=== PATIENT | male | born 1980 | race Caucasian/White ===

== ENCOUNTER 2016-04-24 00:53 | Emergency (ER) | payer OTHER ==
[~2016-04-24] VITALS: Ht 167.6 cm; Wt 72.6 kg
[2016-04-24 00:53] VITALS: BP 143/93; PULSE 123; RESP 16; TEMP 98.2; O2SAT 100
--- NOTE | 2016-04-24 00:53 | NUR ---
Placed in hallway. Gave report to Bharat BRADSHAW.
--- NOTE | 2016-04-24 01:10 | NUR ---
PT BIB [employer] FOR BLOOD ALCOHOL, ROUTINE FOR DUI FOR SPEEDING. PT DENIES ANY PAIN OR WOUND.
--- NOTE | 2016-04-24 01:17 | NUR ---
Written and verbal consent obtained from patient for blood alcohol, name and verified by patient. Disinfected patient's skin with POVIDONE IODINE that did not contain alcohol or other volatile organic compound. Collected the blood from the subject named by venipuncture, in the presence of Officer Kendal BACON #[id number]. Used a sterile, dry hypodermic needle and dry vacuum blood collection. The dry vacuum blood collection was supplied by the officer named above. Withdrew a specimen of blood from [facility] of the subject named above. Inverted the blood tube several times to ensure that the preservative and anticoagulant were thoroughly mixed in the blood specimen. I initialed the blood tube label for identification. The labeled blood tube was handed directly to the Officer named above. The blood tube stopper remained in place while I had possession of the blood tube. The Officer placed tube into envelope and sealed it in my presence. Envelope initialed by myself and Officer named above. Patient tolerated well, bandage applied, and bleeding controlled.
[2016-04-24 01:24] VITALS: BP 132/80; PULSE 92; RESP 16; TEMP 98.2; O2SAT 100
--- NOTE | 2016-04-24 01:24 | NUR ---
Patient GIVEN verbal discharge instructions and verbalizes understanding. Patient in stable condition. ID arm band removed. Opportunity for questions provided and answered. PT WAS DISCHARGED WITH [employer] [facility] WITH [facility].
--- NOTE | 2016-04-24 01:30 | NUR ---
Note zbigniew in EDM - 04/24/16 at 0131 by FARRUKH Written and verbal consent obtained from patient for blood alcohol, name and verified by patient. Disinfected patient's skin with POVIDONE IODINE that did not contain alcohol or other volatile organic compound. Collected the blood from the subject named by venipuncture, in the presence of Officer Kendal BACON #[id number]. Used a sterile, dry hypodermic needle and dry vacuum blood collection. The dry vacuum blood collection was supplied by the officer named above. Withdrew a specimen of blood from [facility] of the subject named above. Inverted the blood tube several times to ensure that the preservative and anticoagulant were thoroughly mixed in the blood specimen. I initialed the blood tube label for identification. The labeled blood tube was handed directly to the Officer named above. The blood tube stopper remained in place while I had possession of the blood tube. The Officer placed tube into envelope and sealed it in my presence. Envelope initialed by myself and Officer named above. Patient tolerated well, bandage applied, and bleeding controlled.
== END 2016-04-24 01:24 ==
LOC: SED 00:53
DX: Z02.83 Encounter for blood-alcohol and blood-drug test (principal)